=== PATIENT | female | born 1970 | race Caucasian/White ===

== ENCOUNTER 2019-04-09 12:18 | Inpatient (IN) | payer MEDICAID ==
[~2019-04-09] VITALS: Ht 157.5 cm; Wt 95.3 kg
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
[~2019-04-09 12:18] MED LIST: ACYCLOVIR 400400 MG; ALAVERT10 MG PO; ANTIVERT25 MG PO; APHEN325 MG; AUGMENTIN 875-1 EACH PO; BIRTH CONTROL; CARISOPRODOL 3350 MG PO; CELEXA40 MG PO; CLONAZEPAM 1 MG1 M1 PO; FLEXERIL; HYDROCODON-ACE1 EAC5 PO; HYDROCODON-ACE1 EAC7 PO; IBUPROFEN 800800 M1 PO; IMITREX100 MG; LEXAPRO20 MG PO; LISINOPRIL10 MG; MEDROLDOSEPACK PO; MIGRANOW KIT50 MG PO; PERCOCET 5-3251 EACH PO; PHENERGAN 25 MG25 M1; PHENERGAN 25 MG25 M1 PO; PRINIVIL20 MG; ROBAXIN 750 MG750 M1 PO; TOPAMAX50 MG; TORADOL 10 MG T10 MG PO; TRAMADOL 50 MG50 MG PO; ULTRAM 50MG TAB50 MG; VERAPAMIL HCL120 MG; XANAX XR2 MG PO; ZANAFLEX4 MG PO; ZOFRAN4 MG PO; ZOLOFT50 MG; [UNRECOGNIZED DRUG - OTHER] PO
[2019-04-09 12:40] VITALS: BP 148/95
[2019-04-09] MEDS ORDERED: KAPSPARGO SPRIN25 MG PO (12:45)
[2019-04-09] MEDS ORDERED: METHOCARBAMOL500 M2 PO (12:46)
[2019-04-09] MEDS ORDERED: WELLBUTRIN 100100 MG TRANSDERM (12:46)
[2019-04-09] MEDS ORDERED: GRALISE600 MG PO (12:47)
[2019-04-09 13:11] LABS: INFLUENZA A ANTIGEN Negative (Negative); INFLUENZA B ANTIGEN Negative (Negative)
[2019-04-09 14:26] LABS: ABSOLUTE BASOPHILS 0.1 thou/uL (0.0-0.2); ABSOLUTE EOSINOPHILS 0.1 thou/uL (0.0-0.7); ABSOLUTE LYMPHOCYTES 2.4 thou/uL (0.8-5.3); ABSOLUTE MONOCYTES 0.5 thou/uL (0.0-1.2); ABSOLUTE NEUTROPHILS 6.2 thou/uL (1.6-8.1); BASOPHILS 0.7 %; EOSINOPHILS 0.8 %; HEMATOCRIT 34.3 % (37.0-47.0); HEMOGLOBIN 11.9 gm/dL (12.0-15.0); MCH 31.6 pg (26.0-34.0); MCHC 34.6 g/dL (28.0-37.0); MCV 91.3 fL (80.0-100.0); MONOCYTES 5.1 %; MPV 6.3 fl. (7.2-11.1); NUCLEATED RBCS 0 /100WBC; PLATELET COUNT* 409 thou/uL (150-400); POLYS 67.4 %; RBC 3.75 mil/uL (4.20-5.00); RDW-CV 13.3 % (10.5-14.5); WBC 9.2 thou/uL (4.0-11.0)
[2019-04-09 14:28] LABS: CALCIUM 8.4 mg/dL (8.5-10.1); CREATININE 0.9 mg/dL (0.6-1.3); POTASSIUM 4.2 mmol/L (3.5-5.1)
[2019-04-09 14:39] LABS: ALBUMIN 3.6 g/dL (3.4-5.0); MAGNESIUM 1.9 mg/dL (1.8-2.4); TOTAL BILIRUBIN 0.3 mg/dL (<0.1-1.0); TOTAL PROTEIN 7.4 g/dL (6.4-8.2)
[2019-04-09 17:17] VITALS: BP 107/63
[2019-04-09 20:00] VITALS: BP 128/66; BP 137/77
[2019-04-09] MEDS ORDERED: NORCO 5-325 TA1 EAC2 PO (20:44)
[2019-04-10] VITALS: BP 150/85
[2019-04-10 04:00] VITALS: BP 133/86
--- NOTE | 2019-04-10 06:55 | NUR ---
RECEIVED REPORT FROM ED RN. PT TRANSFERRED TO 215. PT A&OX4. VSS. PORTFOLIO MGR IN PLACE. ADMISSION HISTORY & PHYSICAL ASSESSMENT COMPLETED AND CHARTED. PT ON RA. PT TRACING SR ON TELE. PT UPADLIB TO RESTROOM. NIH CHARTED. PT INSTRUCTED ON NPO-AWAITING SPEECH CONSULT. PT COMPLAINED OF HEADACHE AND LEFT LEG PAIN-PROVIDER MADE AWARE WITH NEW ORDERS. PT ABLE TO SLEEP WELL ON BED. CALL LIGHT WITHIN REACH.
[2019-04-10 08:00] VITALS: BP 120/71
[2019-04-10 12:00] VITALS: BP 99/63
[2019-04-10] MEDS ORDERED: BUTRANS PATCH TRANSDERM (13:54)
[2019-04-10 15:27] LABS: AMP/METHAMP Negative (Negative); BARBITURATES Negative (Negative); BENZODIAZEPINES Negative (Negative); COCAINE Negative (Negative); METHADONE Negative (Negative); OPIATES POSITIVE (Negative); PCP Negative (Negative); THC Negative (Negative)
[2019-04-10 15:36] LABS: CHOLESTEROL 258 mg/dL (<200); HDL CHOLESTEROL 55 mg/dL (>40); LDL CHOLESTEROL 177 mg/dL (<100); TC:HDL 4.7 Ratio (Not establshd); TRIGLYCERIDE 133 mg/dL (<150); VLDL 27 mg/dL (<40)
[2019-04-10 15:39] LABS: SERUM ASSESSMENT Clear
[2019-04-10 16:00] VITALS: BP 102/59
[2019-04-10] MEDS ORDERED: DICLOFENAC SODI75 MG PO (18:38)
--- NOTE | 2019-04-10 19:03 | NUR ---
PT VSS, NSR ON TELE, A&OX4, UP AD JOHN, HOURLY ROUNDING PERFORMED, POSSESSIONS AND CALL LIGHT WITHIN REACH. NPO AT MIDNIGHT, TRANS-ESOPHAGEAL ECHO TOMORROW AM
[2019-04-10 20:00] VITALS: BP 117/81
[2019-04-11] VITALS: BP 119/82
[2019-04-11 04:00] VITALS: BP 114/60
--- NOTE | 2019-04-11 05:13 | NUR ---
ASSUMED CARE OF PT AFTER REPORT AT 1930. PT A&OX4. VSS. PHYSICAL ASSESSMENT COMPLETED AND CHARTED. PT ON RA. PT TRACING SR/ST ON TELE. PT UP ADLIB TO RESTROOM. NIH CHARTED. PT COMPLAINED OF HEADACHE-MEDS GIVEN PER MAR. PT INSTRUCTED ON NPO POST MIDNIGHT FOR BRENDA. COMMUNICATES UNDERSTANDING. PT ABLE TO SLEEP WELL ON BED. CALL LIGHT WITHIN REACH.
[2019-04-11 08:00] VITALS: BP 132/79
--- NOTE | 2019-04-11 12:19 | EKG ---
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: BARBIE : 1970 Requested By: Chapin Garza Order Number: [id number] MD: Chance Moreno Measurements Intervals [place] Rate: 70 P: 46 SC: 164 QRS: 14 QRSD: 104 T: 15 QT: 391 QTc: 422 Interpretive Statements Sinus rhythm Abnormal R-wave progression, early transition Compared to ECG 03/09/2016 21:52:27 Left ventricular hypertrophy persists Electronically Signed On 04-11-2019 12:19:07 [employer]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
[2019-04-11 12:32] VITALS: BP 119/82
[2019-04-11] MEDS ORDERED: LIPITOR 40 MG T40 M1 PO (13:53)
[2019-04-11 14:00] VITALS: BP 119/82
[2019-04-11] MEDS ORDERED: ASA81BEC PO (14:00)
--- NOTE | 2019-04-11 17:11 | 2DMMODE ---
[place] [address] 2 D/M-MODE ECHOCARDIOGRAM Name: JEFFRY HILARIO Room: [address] IN M.R.#: [id number] Admission: 04/09/19 Attend Phys: Veronika choe Sa Discharge: Date of : 72 Date of Service: 04/11/19 1710 Report #: [id number] THIS REPORT FOR: //name// APPROVED REPORT Study performed: 04/11/2019 14:41:28 EXAM: Comprehensive 2D, Doppler, and color-flow Echocardiogram Patient Location: Bedside BSA: 1.95 HR: 82 bpm BP: 119/82 mmHg Other Information Study Quality: Fair Indications CVA/TIA Chest Pain Echo Enhancing Agent Indication: Rule out Shunt Agent(s) / Amount(s) Used: Agitated Saline cc 2D Dimensions IVSd: 10.55 (7-11mm) LVOT Diam: 20.65 (18-24mm) LVDd: 43.10 mm PWd: 10.26 (7-11mm) Ascending Ao: 32.37 (22-36mm) LVDs: 28.87 (25-40mm) Aortic Root: 25.35 mm Volumes Left Atrial Volume (Systole) LA ESV Index: 16.60 mL/m2 Aortic Valve AoV Peak Ole.: 1.55 m/s AO Peak Gr.: 9.64 mmHg LVOT Max P.66 mmHg AO Mean Gr.: 4.95 mmHg LVOT Mean P.12 mmHg LVOT Max V: 1.38 m/s AO V2 VTI: 26.76 cm LVOT Mean V: 0.79 m/s GRACIELA (VTI): 2.74 cm2 LVOT V1 VTI: 21.86 [place] [address] 2 D/M-MODE ECHOCARDIOGRAM Name: JEFFRY HILARIO Room: [address] IN ..#: [id number] Admission: 04/09/19 Attend Phys: Veronika choe Sa Discharge: Date of : 72 Date of Service: 04/11/19 1710 Report #: [id number] E/A Ratio: 1.31 MV Decel. Time: 234.13 ms MV E Max Ole.: 1.03 m/s MV PHT: 67.90 ms MVA (PHT): 3.24 cm2 TDI E/Lateral E': 9.36 E/Medial E': 11.44 Medial E' Ole.: 0.09 m/s Lateral E' Ole.: 0.11 m/s Pulmonary Valve PV Peak Ole.: 1.35 m/s PV Peak Gr.: 7.33 mmHg Tricuspid Valve RAP Estimate: 20.00 mmHg TR Peak Gr.: 22.03 mmHg RVSP: 42.03 mmHg PA Pressure: 42.03 mmHg Left Ventricle The left ventricle is normal size. There is normal LV segmental wall motion. There is normal left ventricular wall thickness. Left ventricular systolic function is normal. LVEF is 60-65%. The left ventricular diastolic function is normal. Right Ventricle The right ventricle is normal size. The right ventricular systolic function is normal. Atria The left atrium size is normal. Injection of bubbles documented no interatrial shunt. The right atrium size is normal. Aortic Valve The aortic valve is normal in structure. No aortic regurgitation is present. There is no aortic valvular stenosis. Mitral Valve The mitral valve is normal in structure. There is no mitral valve regurgitation noted. No evidence of mitral valve stenosis. Tricuspid Valve The tricuspid valve is normal in structure. Trace tricuspid regurgitation[place] [address] 2 D/M-MODE ECHOCARDIOGRAM Name: JEFFRY HILARIO Room: [address] IN [facility]#: [id number] Admission: 04/09/19 Attend Phys: Veronika choe Sa Discharge: Date of : 72 Date of Service: 04/11/19 1710 Report #: [id number] The pulmonary valve is normal in structure. There is no pulmonic valvular regurgitation. Great Vessels The aortic root is normal in size. IVC is normal in size and collapses >50% with inspiration. Pericardium There is no pericardial effusion. <Conclusion> The left ventricle is normal size. There is normal left ventricular wall thickness. Left ventricular systolic function is normal. LVEF is 60-65%. The left ventricular diastolic function is normal. Injection of bubbles documented no interatrial shunt. Trace tricuspid regurgitation. <ELECTRONICALLY SIGNED> By: Ian Thomason MD, FACC 04/11/191709 09 09 Ian Thomason MD, FACC /INF
[2019-04-11 17:13] VITALS: BP 129/97
[2019-04-12 02:06] LABS: GLYCOHEMOGLOBIN (HGB A1C) 5.9 % (4.8-5.6)
--- NOTE | 2019-04-12 20:10 | NUR ---
VSS, A&OX4, NSR ON TELE, PATIENT REPORTS SEVERE MIGRAINE PAIN. HOURLY ROUNDING PERFORMED, POSSESSIONS AND CALL LIGHT WITHIN REACH. PATIENT UP AT JOHN. REC DISCHARGE ORDERS, REVIEWED WITH PATIENT, SCRIPT AND CARE NOTE GIVEN TO PATIENT. PATIENT TAKEN TO FRONT DOOR IN WHEELCHAIR BY NURSING STAFF, PICKED UP DAUGHTER IN FAMILY CAR.
== END 2019-04-11 18:00 | disposition home or self-care (01) | DRG 69 ==
LOC: M.ERS 12:18 → M.2W 16:23 → M.TBA-ER 16:23 → M.2W 20:39
PROVIDERS: Emergency Medicine Emergency Medical Services; ADMIT Family Medicine
DX: G45.9 Transient cerebral ischemic attack, unspecified (principal); G43.909 Migraine, unspecified, not intractable, without status migrainosus; I10 Essential (primary) hypertension; F32.9 Major depressive disorder, single episode, unspecified; F41.9 Anxiety disorder, unspecified; G89.4 Chronic pain syndrome; F12.90 Cannabis use, unspecified, uncomplicated; D47.3 Essential (hemorrhagic) thrombocythemia; E78.5 Hyperlipidemia, unspecified; Z90.49 Acquired absence of other specified parts of digestive tract; Z88.6 Allergy status to analgesic agent; Z91.040 Latex allergy status

== ENCOUNTER 2021-02-13 16:07 | Inpatient (IN) | payer MEDICAID ==
[~2021-02-13] VITALS: Ht 157.5 cm; Wt 88.5 kg
[2021-02-13 16:07] VITALS: BP 126/84
[~2021-02-13 16:07] MED LIST changes: +ASA81BEC PO; +BUTRANS PATCH TRANSDERM; +DICLOFENAC SODI75 MG PO; +GRALISE600 MG PO; +KAPSPARGO SPRIN25 MG PO; +LIPITOR 40 MG T40 M1 PO; +METHOCARBAMOL500 M2 PO; +NORCO 5-325 TA1 EAC2 PO; +WELLBUTRIN 100100 MG TRANSDERM
[2021-02-13 17:14] LABS: ABSOLUTE EOSINOPHILS 0.1 thou/uL (0.0-0.7); ABSOLUTE LYMPHOCYTES 1.3 thou/uL (0.8-5.3); ABSOLUTE MONOCYTES 0.5 thou/uL (0.0-1.2); ABSOLUTE NEUTROPHILS 6.8 thou/uL (1.6-8.1); BASOPHILS 0.5 %; HEMOGLOBIN 13.1 gm/dL (12.0-15.0); LYMPHOCYTES 14.5 %; MCH 30.4 pg (26.0-34.0); MCHC 34.4 g/dL (28.0-37.0); MCV 88.6 fL (80.0-100.0); MONOCYTES 6.2 %; MPV 6.1 fl. (7.2-11.1); NUCLEATED RBCS 0 /100WBC; POLYS 77.8 %; RBC 4.29 mil/uL (4.20-5.00); RDW-CV 13.3 % (10.5-14.5); WBC 8.7 thou/uL (4.0-11.0)
[2021-02-13 17:22] LABS: CALCIUM 8.7 mg/dL (8.5-10.1)
[2021-02-13 17:33] LABS: ALBUMIN 2.8 g/dL (3.4-5.0); TOTAL BILIRUBIN 0.5 mg/dL (<0.1-1.0); TOTAL PROTEIN 7.6 g/dL (6.4-8.2)
[2021-02-13 17:35] LABS: POTASSIUM 2.8 mmol/L (3.5-5.1)
[2021-02-13 17:41] LABS: PLATELET COUNT* 991 thou/uL (150-400)
[2021-02-13 20:18] VITALS: BP 142/82
[2021-02-13 20:26] VITALS: BP 142/82
[2021-02-13 22:03] LABS: URINE BLOOD 3+ (Negative); URINE CLARITY CLEAR; URINE COLOR DARK YELLOW; URINE GLUCOSE-RANDOM TRACE (Negative); URINE KETONES 1+ (Negative); URINE LEUKOCYTES-REFLEX TRACE (Negative); URINE NITRITE-REFLEX NEGATIVE (Negative); URINE PROTEIN TRACE (Negative); URINE UROBILINOGEN 0.2 E.U./dl (0.2-1.0)
[2021-02-13 22:17] LABS: URINE BILIRUBIN 1+ (Negative)
[2021-02-13 22:21] LABS: ICTOTEST (BILI CONFIRMATORY) Positive (Negative)
[2021-02-13 22:45] VITALS: BP 168/89
[2021-02-13 23:04] LABS: CASTS None Seen /LPF (None Seen); MUCUS 4-6 Moderate strn/LPF (None Seen); SQUAMOUS >10 Many /LPF (0-3)
[2021-02-13 23:05] LABS: URINE RBC 3-10 Few /HPF (0-2); URINE WBC-REFLEX 6-15 Few /HPF (0-5)
[2021-02-13 23:06] LABS: CRYSTALS None Seen /LPF (None Seen)
[2021-02-14 00:45] VITALS: BP 157/95
[2021-02-14 04:52] VITALS: BP 143/79
[2021-02-14 05:46] LABS: AMP/METHAMP Negative (Negative); BARBITURATES Negative (Negative); BENZODIAZEPINES Negative (Negative); COCAINE Negative (Negative); METHADONE Negative (Negative); OPIATES POSITIVE (Negative); PCP Negative (Negative); THC POSITIVE (Negative)
[2021-02-14 07:59] VITALS: BP 171/103
--- NOTE | 2021-02-14 10:20 | EKG ---
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 : 1970 Requested By: Oliverio Crook Order Number: [id number] MD: Wilbur Maciel Measurements Intervals [place] Rate: 77 P: 49 MS: 147 QRS: 3 QRSD: 108 T: -27 QT: 440 QTc: 499 Interpretive Statements Sinus rhythm Abnormal R-wave progression, early transition Nonspecific T abnormalities, inferior leads Borderline prolonged QT interval Compared to ECG 04/09/2019 14:04:30 T-wave abnormality now present Electronically Signed On 02-14-2021 10:20:46 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
[2021-02-14 12:26] VITALS: BP 149/88
[2021-02-14 14:31] LABS: CALCIUM 8.9 mg/dL (8.5-10.1); CREATININE 0.9 mg/dL (0.6-1.3); MAGNESIUM 2.5 mg/dL (1.8-2.4); POTASSIUM 3.6 mmol/L (3.5-5.1)
[2021-02-14 16:16] VITALS: BP 152/86
[2021-02-14 20:00] VITALS: BP 152/95
[2021-02-15] VITALS: BP 150/91
[2021-02-15 04:00] VITALS: BP 149/92
[2021-02-15 04:32] LABS: HEMATOCRIT 33.4 % (37.0-47.0); HEMOGLOBIN 11.3 gm/dL (12.0-15.0); MCH 30.4 pg (26.0-34.0); MCHC 33.8 g/dL (28.0-37.0); MCV 89.9 fL (80.0-100.0); MPV 6.1 fl. (7.2-11.1); RBC 3.71 mil/uL (4.20-5.00); RDW-CV 13.3 % (10.5-14.5); WBC 11.4 thou/uL (4.0-11.0)
[2021-02-15 04:57] LABS: ALBUMIN 2.5 g/dL (3.4-5.0); CALCIUM 8.7 mg/dL (8.5-10.1); CREATININE 0.8 mg/dL (0.6-1.3); MAGNESIUM 2.4 mg/dL (1.8-2.4); POTASSIUM 3.3 mmol/L (3.5-5.1); TOTAL BILIRUBIN 0.4 mg/dL (<0.1-1.0); TOTAL PROTEIN 6.6 g/dL (6.4-8.2)
[2021-02-15 08:00] VITALS: BP 141/77
[2021-02-15 12:00] VITALS: BP 161/90
[2021-02-15 16:30] VITALS: BP 159/92
[2021-02-15 20:00] VITALS: BP 140/80
[2021-02-16 00:11] VITALS: BP 150/87
[2021-02-16 02:07] LABS: GLYCOHEMOGLOBIN (HGB A1C) 6.5 % (4.8-5.6)
[2021-02-16 04:00] VITALS: BP 129/95
[2021-02-16 09:54] VITALS: BP 146/83
[2021-02-16 11:46] VITALS: BP 147/77
[2021-02-16 15:49] VITALS: BP 147/93
[2021-02-16 20:00] VITALS: BP 138/81
[2021-02-17 00:14] VITALS: BP 121/75
[2021-02-17 04:00] VITALS: BP 148/97
[2021-02-17 09:30] VITALS: BP 116/82
[2021-02-17 10:48] LABS: HEMATOCRIT 35.7 % (37.0-47.0); HEMOGLOBIN 11.9 gm/dL (12.0-15.0); MCH 30.2 pg (26.0-34.0); MCHC 33.3 g/dL (28.0-37.0); MCV 90.9 fL (80.0-100.0); RBC 3.93 mil/uL (4.20-5.00); RDW-CV 13.3 % (10.5-14.5); WBC 9.8 thou/uL (4.0-11.0)
[2021-02-17 10:56] LABS: POTASSIUM 3.7 mmol/L (3.5-5.1)
[2021-02-17 11:30] VITALS: BP 132/71
[2021-02-17 16:00] VITALS: BP 153/95
[2021-02-17 20:00] VITALS: BP 150/92
[2021-02-18] VITALS: BP 141/97
[2021-02-18 04:00] VITALS: BP 145/92
[2021-02-18 08:34] VITALS: BP 162/94
[2021-02-18 11:42] VITALS: BP 135/58
[2021-02-18 15:47] VITALS: BP 153/102
[2021-02-18] MEDS ORDERED: PROAIR HFA8.5 GM INH (16:04)
[2021-02-18] MEDS ORDERED: PREDNISONE 10 M10 MG PO (16:04)
[2021-02-18] MEDS ORDERED: LEVOFLOXACIN500 MG PO (16:04)
[2021-02-18] MEDS ORDERED: IMODIUM A-D2 M1 PO (16:07)
[2021-02-18 20:00] VITALS: BP 156/104
[2021-02-19] VITALS (8 sets, daily range): BP systolic 113–148; BP diastolic 76–92
== END 2021-02-19 13:18 | disposition home health service (06) | DRG 177 ==
LOC: M.ERS 16:07 → M.TBA-ER 17:44 → M.ORTHSURG 17:44
PROVIDERS: Family Medicine; Internal Medicine; ADMIT Internal Medicine; ATTEND Internal Medicine
DX: U07.1 COVID-19 (principal); J12.82 Pneumonia due to coronavirus disease 2019; J96.01 Acute respiratory failure with hypoxia; N30.00 Acute cystitis without hematuria; I10 Essential (primary) hypertension; F32.9 Major depressive disorder, single episode, unspecified; F41.9 Anxiety disorder, unspecified; G89.4 Chronic pain syndrome; E11.65 Type 2 diabetes mellitus with hyperglycemia; E78.5 Hyperlipidemia, unspecified; Z90.49 Acquired absence of other specified parts of digestive tract; Z88.6 Allergy status to analgesic agent; Z91.040 Latex allergy status; Z82.49 Family history of ischemic heart disease and other diseases of the circulatory system; Z28.21 Immunization not carried out because of patient refusal

== ENCOUNTER 2021-03-05 16:55 | Emergency (ER) | payer MEDICAID ==
[~2021-03-05] VITALS: Ht 157.5 cm; Wt 88.0 kg
[~2021-03-05 16:55] MED LIST changes: +IMODIUM A-D2 M1 PO; +LEVOFLOXACIN500 MG PO; +PREDNISONE 10 M10 MG PO; +PROAIR HFA8.5 GM INH
[2021-03-05 17:19] VITALS: BP 146/87
== END 2021-03-05 17:19 | disposition home or self-care (01) ==
LOC: M.ERS 16:55
DX: L85.3 Xerosis cutis (principal); I10 Essential (primary) hypertension; G43.909 Migraine, unspecified, not intractable, without status migrainosus; F32.9 Major depressive disorder, single episode, unspecified; F41.9 Anxiety disorder, unspecified; Z90.49 Acquired absence of other specified parts of digestive tract; Z79.2 Long term (current) use of antibiotics; Z79.899 Other long term (current) drug therapy; Z79.82 Long term (current) use of aspirin; Z88.5 Allergy status to narcotic agent; Z91.040 Latex allergy status